=== PATIENT | male | born 1975 | race Caucasian/White ===

== ENCOUNTER 2020-05-12 02:43 | Emergency (ER) | payer OTHER ==
[2020-05-12 03:00] VITALS: BP 155/101; PULSE 104; TEMP 98.3; BMI 44.2
[2020-05-12] MEDS ORDERED: DIPHTH,PERTUSS(ACELL),TET 0.5 ML DISP.SYRIN IM ONE ×2 (03:11→04:02)
[2020-05-12] MEDS ORDERED: AMOX TR/POT CLAV 875MG/125MG TABLETS (FP) PO ONE (03:16)
[2020-05-12] MEDS ORDERED: AMPICILLIN NA/SULBACTAM NA 1.5 GM in SODIUM CHLORIDE 100 ML IVPB ONE (03:19)
[2020-05-12] MEDS ORDERED: AMPICILLIN NA/SULBACTAM NA 3 GM in SODIUM CHLORIDE 100 ML IVPB ONE (03:21)
[2020-05-12 03:22] LABS: BASO % 0.9 % (0-2.0); EOS % 3.7 % (0-4.5); HEMATOCRIT 50.5 % (35.4-49); HEMOGLOBIN 17.1 GM/dL (11.7-16.9); LYMPH % 14.5 % (8-40); MCH 31.6 pg (25.7-33.7); MCHC 33.9 g/dl (32.0-35.9); MEAN CELL VOLUME 93.3 fl (80-96); MEAN PLT VOLUME 9.2 fl (7.5-11.1); MONO % 7.8 % (3.8-10.2); NEUT % 73.1 % (42.8-82.8); PLATELET COUNT 291 K/MM3 (134-434); RBC 5.42 M/mm3 (4.00-5.60); RDW 13.3 % (11.9-15.9); WHITE BLOOD COUNT 8.5 K/mm3 (4.0-10.0)
[2020-05-12 03:34] LABS: INR 0.96 (0.83-1.09); PROTHROMBIN TIME (PATIENT) 11.8 SEC (9.7-13.0)
[2020-05-12 03:36] LABS: ACTIVATED PTT 28.4 SECONDS (25.2-36.5)
[2020-05-12 03:54] LABS: POTASSIUM 3.2 mmol/L (3.5-5.1)
[2020-05-12 03:56] LABS: BLOOD UREA NITROGEN 7.1 mg/dL (7-18); CALCIUM 9.2 mg/dL (8.5-10.1)
[2020-05-12 04:01] LABS: BILIRUBIN,TOTAL 0.4 mg/dL (0.2-1); TOT PROT 8.2 g/dl (6.4-8.2)
== END 2020-05-12 04:45 | disposition left against medical advice (07) ==
LOC: JER 02:43
PROC: 3E0234Z Introduction of Serum, Toxoid and Vaccine into Muscle, Percutaneous Approach (ICD-10-PCS; principal; 2020-05-12)
PROC: 3E03329 Introduction of Other Anti-infective into Peripheral Vein, Percutaneous Approach (ICD-10-PCS; 2020-05-12)
DX: G50.1 Atypical facial pain (principal); Y04.0XXA Assault by unarmed brawl or fight, initial encounter
CPT/HCPCS: 36415; 70450-TC; 70486-TC; 71045-TC-FY; 72125-TC; 80053; 80307; 85025; 85610; 85730; 86850; 86900; 86901; 90715; 99285-25; C9803; U0003